=== PATIENT | male | born 1960 | race Caucasian/White ===

== ENCOUNTER 2016-03-24 08:43 | Emergency (ER) | payer MEDICARE, MEDICAID ==
[2016-03-24 08:53] VITALS: BMI 19.7
[2016-03-24] MEDS ORDERED: SODIUM CHLORIDE 0.9% 10 ML FLUSH FLUSH PRN (09:19)
[2016-03-24] MEDS ORDERED: ONDANSETRON HCL 4 MG/2 ML VIAL IV ONE (09:20)
[2016-03-24] MEDS ORDERED: HYDROmorphone 1 MG INJECTION IV ONE (09:20)
--- NOTE | 2016-03-24 09:23 | EDPRACDOC ---
- General Information Information Source: Family - History of Present Illness Onset: SEVERAL WKS HPI: Pt sent for further evaluation of R heel wound. Pt states its getting worse and wound clinic sent him for IV antibiotics. Denies fever, red streaking, cp, sob. Pt has hx heart transplant with insulin use Foot Problem Location: Reports: Right, Heel Mechanism: Reports: No Injury Circumstances: Reports: Spontaneous Able to Bear Weight: No Pain Severity: Reports: Moderate Associated Signs & Symptoms: Reports: Other (deep wound to heel with surrounding erythema) <Cely Valverde - Last Filed: 03/24/16 11:00> - History of Present Illness HPI: MD NOTE SEEN AND EXAMINED; SENT OVER BY DR. SANTIAGO FROM [facility]. SEES PT WEEKLY FOR WOUND ON RIGHT HEEL. SENT HERE FOR ADMISSION. STATES MUCH WORSE. FAMILY REPORTED TO ME HE HAD MRI AT ANOTHER HOSPITAL ABOUT A MONTH AGO OR SO. STATED OSTEOMYELITIS AT THAT TIME. PO ABX AND NOT IV PER FAMILY <Samuel Joseph - Last Filed: 03/24/16 15:04> - General Information Chief Complaint: Wound Stated Complaint: WOUND Time Seen by Provider: 03/24/16 09:09 Home Medications: Home Medications Folic Acid 1 mg PO 0900 01/10/15 Magnesium Oxide [Mag-Ox] 1,200 mg PO BID 01/10/15 Omeprazole 20 mg PO BID 01/10/15 Prednisone [Deltasone, Orasone] 5 mg PO 0900 01/10/15 Tacrolimus [Prograf] 1 mg PO BID 01/10/15 Thiamine [Thiamine, Vitamin B-1] 100 mg PO HS 01/10/15 Artificial Tears 1 drop OU BID 09/06/15 Cyanocobalamin (Vitamin B-12) [Vitamin B-12] 1,000 mcg PO 0900 09/06/15 Doxazosin Mesylate [Cardura] 1 mg PO 0900 09/06/15 Fentanyl [Duragesic] 12 mcg TOP Q72H 09/06/15 Acetaminophen [Tylenol] 650 mg PO Q6H PRN 03/24/16 Albuterol Sulfate [Proair Hfa] 2 puff INH Q6H PRN 03/24/16 Albuterol/Ipratropium Neb [Duoneb] 3 ml NEB TID PRN 03/24/16 Amino Acids/Protein Hydrolys [Pro-Stat Max Liquid] 30 ml PO BID 03/24/16 Ascorbic Acid [Vitamin C] 500 mg PO 0900 03/24/16 Budesonide [Pulmicort] 0.5 mg NEB BID PRN 03/24/16 CITALOPRAM (anti-depressant) [Celexa] 15 mg PO 0900 03/24/16 Calcium Carbonate/Vitamin D3 [Calcium 600 + Vit D Tablet] 2 each PO 0900 Calcium Polycarbophil [Fibercon] 1,250 mg PO HS 03/24/16 Clindamycin HCl [Cleocin HCl] 600 mg PO .[id number] 03/24/16 Ferrous Sulfate [Feosol] 325 mg PO BID 03/24/16 Fluconazole [Diflucan] 200 mg PO 0900 03/24/16 Lorazepam [Ativan] 0.25 mg PO Q8H PRN 03/24/16 Med Pass Nsa 120 ml PO TID 03/24/16 Tetrahydrz/Dext 70/Peg 400/Pvp [Visine Advanced Eye Drop] 1 drop OU DAILY PRN Tramadol HCl [Ultram] 50 mg PO Q6H PRN 03/24/16 Warfarin Sodium [Coumadin] 2.5 mg PO 1700 03/24/16 Allergies/Adverse Reactions: Allergies Allergy/AdvReac Type Severity Reaction Status Date / Time amiodarone Allergy Unknown Verified 03/24/16 08:52 morphine Allergy Unknown Verified 03/24/16 08:52 Mneosqd-[id number]-Hzl Reductase Allergy Unknown Verified 03/24/16 08:52 Inhibitor sulfamethoxazole Allergy Unknown Verified 03/24/16 08:52 [From ] trimethoprim [From ] Allergy Unknown Verified 03/24/16 08:52 ED Past Medical History - History Reviewed Yes Nurses notes reviewed and agree except as marked - Patient Medical History Neurological History: Reports: Cerebrovascular Accident, Dementia Cardiac History: Reports: Hypertension Respiratory History: Reports: COPD GI/ History: Reports: Gastroesophageal Reflux Psychological History: Denies: Depression Additional Past Medical History: heart transplant 2010 - Social Medical History Smoking Status: Former smoker <Cely Valverde - Last Filed: 03/24/16 11:00> EDM Review of Systems - Review of Systems Constitutional: No Symptoms Reported. negative: Fever, Chills, Weakness, Fatigue, Loss of Appetite Respiratory: No Symptoms Reported. negative: Cough, Brassy Cough, Barky Cough, Shortness of Breath, Wheezing, Hemoptysis Cardiovascular: No Symptoms Reported. negative: Chest Pain, Palpitations, Syncope, Edema, Orthopnea, PND, Skin Mottling, Cyanosis Gastrointestinal: No Symptoms Reported. negative: Pain, Constipation, Nausea, Vomiting, Diarrhea, Melena, Formula Intolerance Neurological: No Symptoms Reported. negative: Headache, Dizziness, Seizure, Numbness, Weakness, Speech Difficulty, Gait Difficulty Musculoskeletal: Foot Integumentary: Wound Allergic/Immunologic: No Symptoms Reported. negative: Hives, Itching, Other Hematologic: No Symptoms Reported. negative: Lymphadenopathy, Easy Bruising, Easy Bleeding Psychiatric: No Symptoms Reported. negative: Anxiety, Depression, Hallucinations, Insomnia, Suicidal <Cely Valverde - Last Filed: 03/24/16 11:00> - Physical Exam Constitutional: Alert Oriented to: Time, Person, Place Last recorded Vital Signs: Last Vital Signs Temp 98.3 F 03/24/16 08:47 Pulse 118 03/24/16 08:47 Resp 20 03/24/16 08:47 BP 120/69 03/24/16 08:47 Pulse Ox 100 03/24/16 08:47 Oxygen Pulse Oxygen Saturation 100 O2 Device Oxygen Flow Rate Fraction of Inspired Oxygen ( FIO2) - HEENT Head: Normal ( normocephalic) - Respiratory/Cardiovascular Respiratory: Normal - CTA (BBS clear to auscultation without adventitious sounds ) Cardiovascular: Normal (RRR without murmur, gallop or rub) - Musculoskeletal Extremities: Normal (Normal tone, Pulses 2+ No cyanosis or edema, FROM) - Integumentary Skin: Normal, Warm, Dry Lymphatics: Normal (no adenopathy) - Neurologic Memory Impaired: Normal Motor Function: Normal (Normal tone, Pulses 2+ No cyanosis or edema, FROM) Mood Description: Normal Perception: Normal <Cely Valverde - Last Filed: 03/24/16 11:00> - Physical Exam Last recorded Vital Signs: Last Vital Signs Temp 98.3 F 03/24/16 08:47 Pulse 110 03/24/16 09:48 Resp 18 03/24/16 09:48 BP 110/69 03/24/16 09:48 Pulse Ox 99 03/24/16 09:48 Oxygen Pulse Oxygen Saturation 99 O2 Device Room Air Oxygen Flow Rate Fraction of Inspired Oxygen ( FIO2) <Samuel Joseph - Last Filed: 03/24/16 15:04> ED Foot Problem Phys Exam - Musculoskeletal Foot: Swelling, Moderate Tenderness Ankle: Normal Nail: Normal Nailbed: Normal Soft Tissue: Tender, Red, Swelling, Drainage, Other (deep wound to posterior heel) Digit: Normal Digit Strength: Normal Distal Function/Circulation: Normal - Integumentary Skin: Swelling Lymphatics: Normal - Other Exam Foot Image: 1 - chronic deep wound with erythema to tissue 2 - blood blister 3 - abrasion <Cely Valverde - Last Filed: 03/24/16 11:00> - Differential Diagnosis Other (osteomyletis, cellulitis) - Results 03/24/16 09:20 03/24/16 09:20 - Diagnostic Imaging Foot Image interpreted by: Radiologist Diagnostic Imaging Comments: IMPRESSION: Soft tissue wound over the calcaneus with trace Subcutaneous Gas and evidence of calcaneus acute Osteomyelitis. <Cely Valverde - Last Filed: 03/24/16 11:00> - Results 03/24/16 09:20 03/24/16 09:20 WBC 5.6 xk/uL (3.8-10.8) 03/24/16 09:20 RBC 3.79 xM/uL (4.70-6.10) L 03/24/16 09:20 Hgb 7.6 g/dL (14.0-18.0) L 03/24/16 09:20 Hct 25.4 % (42-52) L 03/24/16 09:20 MCV 67 fL (80-94) L 03/24/16 09:20 MCH 19.9 pg (27-32) L 03/24/16 09:20 MCHC 29.8 g/dl (33-36) L 03/24/16 09:20 RDW 16.9 % (11.5-14.5) H 03/24/16 09:20 Plt Count 242 xk/uL (130-400) 03/24/16 09:20 MPV 7.3 fL (7.4-10.4) L 03/24/16 09:20 Sodium 142 mEq/L (137-146) 03/24/16 09:20 Potassium 5.3 mEq/L (3.5-5.1) H 03/24/16 09:20 Chloride 106 mEq/L (98-107) 03/24/16 09:20 Carbon Dioxide 27 mMOL/L (22-33) 03/24/16 09:20 Anion Gap 14 mEq/L (8-16) 03/24/16 09:20 BUN 38 MG/DL (9-20) H 03/24/16 09:20 Creatinine 1.40 MG/DL (0.66-1.25) H 03/24/16 09:20 Estimated GFR (MDRD) 52 mL/min (>=60) L 03/24/16 09:20 Glucose 152 MG/DL (70-99) H 03/24/16 09:20 Calculated Osmolality 285 MOs/Kg (270-290) 03/24/16 09:20 Lactic Acid 1.6 mEq/L (0.7-2.1) 03/24/16 09:20 Calcium 8.5 MG/DL (8.4-10.2) 03/24/16 09:20 Corrected Calcium 9.2 MG/DL (8.4-10.2) 03/24/16 09:20 Total Bilirubin 0.2 MG/DL (0.2-1.3) 03/24/16 09:20 AST 20 IU/L (17-59) 03/24/16 09:20 ALT 25 IU/L (21-72) 03/24/16 09:20 Alkaline Phosphatase 120 IU/L (38-126) 03/24/16 09:20 Total Protein 6.7 G/DL (6.3-8.2) 03/24/16 09:20 Albumin 3.3 G/DL (3.5-5.0) L 03/24/16 09:20 Lab Results 03/24/16 03/24/16 03/24/16 09:20 09:20 09:20 WBC 5.6 RBC 3.79 L Hgb 7.6 L Hct 25.4 L MCV 67 L MCH 19.9 L MCHC 29.8 L RDW 16.9 H Plt Count 242 MPV 7.3 L Sodium 142 Potassium 5.3 H Chloride 106 Carbon Dioxide 27 Anion Gap 14 BUN 38 H Creatinine 1.40 H Estimated GFR (MDRD) 52 L Glucose 152 H Calculated Osmolality 285 Lactic Acid 1.6 Calcium 8.5 Corrected Calcium 9.2 Total Bilirubin 0.2 AST 20 ALT 25 Alkaline Phosphatase 120 Total Protein 6.7 Albumin 3.3 L <Samuel Joseph - Last Filed: 03/24/16 15:04> ED Critical Care Note - Critical Care Note Total Time (mins): 35 <Samuel Joseph - Last Filed: 03/24/16 15:04> - Departure Disposition: Admit IP To This Hospital Education/Counseling Given To: Patient, Family Member Education/Counseling Given Regarding: Diagnosis, Treatment Decision to Admit Time: 10:56 Decision to admit date: 03/24/16 Decision to admit: from ED - Physician Consulted Hospitalist Time Called: 10:56 Provider Called: Teresa Ashraf (Contacted by Dr Joseph for admission) <Cely Valverde - Last Filed: 03/24/16 11:00> - Departure Yes I personally saw and evaluated the patient. Disposition: Trans. to Other Hospital Decision to Transfer Time: 12:34 (VICENTE) <Samuel Joseph - Last Filed: 03/24/16 15:04> - Departure Condition: Stable Final Diagnosis: Osteomyelitis of foot, right, acute, Supratherapeutic INR
[2016-03-24 09:58] LABS: MPV 7.3 fL (7.4-10.4)
[2016-03-24 10:05] LABS: BLOOD UREA NITROGEN 38 MG/DL (9-20); CALC CORRECTED 9.2 MG/DL (8.4-10.2); CALCIUM 8.5 MG/DL (8.4-10.2); CALCULATED OSMOLALITY 285 MOs/Kg (270-290); CHLORIDE 106 mEq/L (98-107); GLUCOSE 152 MG/DL (70-99); SODIUM LEVEL 142 mEq/L (137-146); TOTAL PROTEIN 6.7 G/DL (6.3-8.2)
--- NOTE | 2016-03-24 10:40 | DIRPT ---
CLINICAL DATA: 56-year-old male with right heel wound. Lower extremity contractions. Initial encounter. EXAM: RIGHT FOOT COMPLETE - 3+ VIEW COMPARISON: None. FINDINGS: Soft tissue wound overlying the calcaneus with trace subcutaneous gas (arrow) and cortical osteolysis at the dorsal inferior calcaneus. Two heterogeneous bone mineralization elsewhere with mixed areas of sclerosis, and superimposed metatarsal head lucency. Healed fractures of the right second through fourth proximal phalanges. Calcified peripheral vascular disease. No ankle joint effusion identified. IMPRESSION: Soft tissue wound over the calcaneus with trace Subcutaneous Gas and evidence of calcaneus acute Osteomyelitis. Electronically Signed By: Anamaria Marshall M.D. On: 03/24/2016 10:37
[2016-03-24 10:45] LABS: SEG NEUTROPHIL 90 % (45-76)
[2016-03-24 10:59] LABS: PT-INR 12.6
[2016-03-24] MEDS ORDERED: PHYTONADIONE 5 MG TAB PO STA (11:02)
[2016-03-24] MEDS ORDERED: GLUCAGON 1 MG VIAL SQ PRN (11:14)
[2016-03-24] MEDS ORDERED: ACETAMINOPHEN 650 MG SUPP PR PRN (11:14)
[2016-03-24] MEDS ORDERED: DOCUSATE-SENNA CONCENTRATE TAB PO PRN (11:14)
[2016-03-24] MEDS ORDERED: ACETAMINOPHEN 325 MG/TAB TABLET PO PRN (11:14)
[2016-03-24] MEDS ORDERED: GLUCOSE (ORAL GEL) 15 GM TUBE PO PRN (11:14)
[2016-03-24] MEDS ORDERED: SODIUM CHLORIDE 0.9% 3 ML FLUSH FLUSH PRN (11:14)
[2016-03-24] MEDS ORDERED: ONDANSETRON HCL 4 MG/2 ML VIAL IV PRN (11:14)
[2016-03-24] MEDS ORDERED: TEMAZEPAM 15 MG CAP PO PRN (11:14)
[2016-03-24] MEDS ORDERED: DEXTROSE 25 GM/50 ML PFS IV PRN (11:14)
[2016-03-24] MEDS ORDERED: BENZONATATE 100 MG PERLES PO PRN (11:14)
[2016-03-24] MEDS ORDERED: METOCLOPRAMIDE 10 MG/2 ML VIAL IV PRN (11:14)
[2016-03-24] MEDS ORDERED: SIMETHICONE 80 MG TAB PO PRN (11:14)
[2016-03-24] MEDS ORDERED: REGULAR INSULIN 100 UNITS/ML - 3 ML VIAL SQ SCH (11:30)
[2016-03-24] MEDS ORDERED: NS 1,000 ML IV SCH ×2 (12:00→20:00)
[2016-03-24] MEDS ORDERED: PIPERACILLIN AND TAZOBACTAM 4.5 GM in D5W 100 ML IV SCH (12:00)
[2016-03-24] MEDS ORDERED: PHYTONADIONE 10 MG in NS 50 ML IV ONE (12:00)
[2016-03-24 15:40] VITALS: TEMP 98.6
--- NOTE | 2016-03-24 16:13 | HISTPHYS ---
- Chief Complaint ulcer-heel, not getting better - Medical History Cardiac History: Reports: Hypertension Respiratory History: Reports: COPD GI/ History: Reports: Gastroesophageal Reflux Neurological History: Reports: Cerebrovascular Accident, Dementia Psychological History: Denies: Depression - Medictions/Allergies Allergies amiodarone Allergy (Verified 03/24/16 08:52) Unknown morphine Allergy (Verified 03/24/16 08:52) Unknown [id number]-[id number]-Tpm Reductase Inhibitor Allergy (Verified 03/24/16 08:52) Unknown sulfamethoxazole [From ] Allergy (Verified 03/24/16 08:52) Unknown trimethoprim [From ] Allergy (Verified 03/24/16 08:52) Unknown Home Medications Folic Acid 1 mg PO 0900 01/10/15 Magnesium Oxide [Mag-Ox] 1,200 mg PO BID 01/10/15 Omeprazole 20 mg PO BID 01/10/15 Prednisone [Deltasone, Orasone] 5 mg PO 0900 01/10/15 Tacrolimus [Prograf] 1 mg PO BID 01/10/15 Thiamine [Thiamine, Vitamin B-1] 100 mg PO 01/10/15 Artificial Tears 1 drop OU BID 09/06/15 Cyanocobalamin (Vitamin B-12) [Vitamin B-12] 1,000 mcg PO 0900 09/06/15 Doxazosin Mesylate [Cardura] 1 mg PO 0900 09/06/15 Fentanyl [Duragesic] 12 mcg TOP Q72H 09/06/15 Acetaminophen [Tylenol] 650 mg PO Q6H PRN 03/24/16 Albuterol Sulfate [Proair Hfa] 2 puff INH Q6H PRN 03/24/16 Albuterol/Ipratropium Neb [Duoneb] 3 ml NEB TID PRN 03/24/16 Amino Acids/Protein Hydrolys [Pro-Stat Max Liquid] 30 ml PO BID 03/24/16 Ascorbic Acid [Vitamin C] 500 mg PO 0900 03/24/16 Budesonide [Pulmicort] 0.5 mg NEB BID PRN 03/24/16 CITALOPRAM (anti-depressant) [Celexa] 15 mg PO 0900 03/24/16 Calcium Carbonate/Vitamin D3 [Calcium 600 + Vit D Tablet] 2 each PO 0900 Calcium Polycarbophil [Fibercon] 1,250 mg PO HS 03/24/16 Clindamycin HCl [Cleocin HCl] 600 mg PO .[id number] 03/24/16 Ferrous Sulfate [Feosol] 325 mg PO BID 03/24/16 Fluconazole [Diflucan] 200 mg PO 0900 03/24/16 Lorazepam [Ativan] 0.25 mg PO Q8H PRN 03/24/16 Med Pass Nsa 120 ml PO TID 03/24/16 Tetrahydrz/Dext 70/Peg 400/Pvp [Visine Advanced Eye Drop] 1 drop OU DAILY PRN Tramadol HCl [Ultram] 50 mg PO Q6H PRN 03/24/16 Warfarin Sodium [Coumadin] 2.5 mg PO 1700 03/24/16 - Social History Smoking Status: Former smoker - Physical Exam Vital Signs: Initial Vitals Temperature 98.3 F 03/24/16 08:47 Pulse Rate 118 03/24/16 08:47 Respiratory Rate 20 03/24/16 08:47 Blood Pressure 120/69 03/24/16 08:47 Pulse Oxygen Saturation 100 03/24/16 08:47 - Focused CV Perfusion Exam Vital Signs: Last Vital Signs Temp 98.6 F 03/24/16 15:38 Pulse 111 03/24/16 15:38 Resp 18 03/24/16 15:38 BP 145/80 03/24/16 15:38 Pulse Ox 99 03/24/16 15:38
[2016-03-24 16:33] VITALS: BP 151/89; PULSE 113
[2016-03-24] MEDS ORDERED: SODIUM CHLORIDE 0.9% 3 ML FLUSH FLUSH SCH (18:00)
== END 2016-03-24 16:30 | disposition short-term general hospital (02) ==
LOC: ED 08:43 → EDINP 11:14 → UNDOADMIN 11:14 → MPS3 11:57 → EDINP 11:57
DX: M86.8X7 Other osteomyelitis, ankle and foot (principal); Z79.01 Long term (current) use of anticoagulants; I10 Essential (primary) hypertension; J44.9 Chronic obstructive pulmonary disease, unspecified; K21.9 Gastro-esophageal reflux disease without esophagitis; F03.90 Unspecified dementia, unspecified severity, without behavioral disturbance, psychotic disturbance, mood disturbance, and anxiety; Z86.73 Personal history of transient ischemic attack (TIA), and cerebral infarction without residual deficits; Z94.1 Heart transplant status; Z79.899 Other long term (current) drug therapy
CPT/HCPCS: 36415; 73630; 80053; 83036; 83605; 84484; 85007; 85027; 85610; 85730; 86850; 86870; 86900; 86901; 86920; 87040; 96365; 96366; 96375; 99284; A9270; J1170; J2405; J2543; J3370; J3430; J7030; J7060; P9059; J3490